=== PATIENT | female | born 1940 | race Caucasian/White ===

== ENCOUNTER → 2017-01-02 | Outpatient (CLI) | payer MEDICARE, MEDICAID | END | disposition home or self-care (01) | LOC: GT 08:36 | PROVIDERS: ATTEND Family Medicine | DX: R27.8 Other lack of coordination (principal); I50.9 Heart failure, unspecified; I69.898 Other sequelae of other cerebrovascular disease ==

== ENCOUNTER → 2017-02-08 | Outpatient (CLI) | payer MEDICARE, MEDICAID | END | disposition home or self-care (01) | LOC: GT 22:30 | PROVIDERS: ATTEND Family Medicine | DX: R30.0 Dysuria (principal); R50.9 Fever, unspecified; R82.90 Unspecified abnormal findings in urine ==

== ENCOUNTER → 2017-06-26 | Outpatient (CLI) | payer MEDICARE, MEDICAID | LOC: GT 06:13 | PROVIDERS: ATTEND Family Medicine | DX: I10 Essential (primary) hypertension (principal) ==

== ENCOUNTER → 2017-10-04 | Outpatient (CLI) | payer MEDICARE, MEDICAID | LOC: GT 07:50 | PROVIDERS: ATTEND Family Medicine | DX: N39.0 Urinary tract infection, site not specified (principal) ==